=== PATIENT | male | born 1960 | race Caucasian/White ===

== ENCOUNTER 2022-03-21 08:23 | Outpatient (CLI) | payer MEDICARE, SELFPAY | END 2022-03-21 08:24 | disposition home or self-care (01) | LOC: ANHBWCAUD 08:25 | PROVIDERS: PCP Family Medicine; Visit Provider Family Medicine | DX: H90.3 Sensorineural hearing loss, bilateral (principal) | CPT/HCPCS: 92557; 92567 ==